=== PATIENT | male | born 1945 | race Two or more races ===

== ENCOUNTER 2020-12-23 12:39 | Day surgery (SDC) | payer OTHER ==
[~2020-12-23 12:39] MED LIST: ATORVASTATIN CA40 MG PO; CETERIZINE PO; GLIMEPIRIDE4 M1 PO; HORIZANT300 MG PO; IMDUR PO; ISORBIDE PO; OXYBU PO; PROTONIX40 M1 PO; SYNJARDY 12.5-1 EAC1 PO; TOPROL XL50 MG PO; ZESTRIL5 MG PO
[2020-12-23] MEDS ORDERED: PYRIDIUM200 MG PO (15:52)
[2020-12-23] MEDS ORDERED: LEVOFLOXACIN500 MG PO (15:53)
== END 2020-12-23 18:00 | disposition home or self-care (01) ==
LOC: CIR.AMB 12:39
PROVIDERS: ATTEND Surgery
DX: N35.812 Other bulbous urethral stricture, male (principal); Z20.822 Contact with and (suspected) exposure to COVID-19